=== PATIENT | female | born 1985 | race African-American/Black ===

== ENCOUNTER 2025-01-29 13:07 | Outpatient (AMB) | payer BC, SELFPAY ==
--- NOTE | 2025-01-29 13:16 | MHC.PC.OV ---
Vital Signs 01/29/25 13:24 Height 5 ft 3 in Weight 136 lb 2 oz BMI 24.1 BP 98/60 Blood Pressure Location Rt brachial Position Sitting Respiration 14 Pulse 88 Pulse Source Pulse Oximeter Temp 97.6 F Temp Source Temporal Artery Scan Pulse Oximetry (%) 98 Oxygen Delivery Method Room Air Intake Visit Reasons: EST CARE/REQUESTING A PE Intake Note: Heidi presents in the office today to establish care. Is last menstrual period known: Yes Last menstrual period: 01/19/25 Allergies Seasonal Allergies Allergy (Verified 01/29/25 13:39) Congestion Medication List - Last Reconciled 01/29/25 by Norah Thompson CNP No Known Home Meds Tobacco use date assessed: 01/29/25 Dental Screening Dental Screen Date: 01/29/25 Did you have a dental visit in the last 12 months?: Yes Did you have a dental problem in the last 6 months where you did not have access to dental care?: No Was dental information given to patient?: Patient has dentist HPI HPI Comments History of Present Illness Details 39-year-old female presents to establish care. Relocated to the [facility] from [place] in 2009. Prior PCP? - [place] Last office visit/CPE/labs - 02/2024 Acute issue(s) - Reports low home blood pressure readings with intermittent dizziness for the past 2 months. No acute symptoms at this time. - She reports h/o anxiety and depression. She saw a therapist until 3 years ago. She has never been on psychotropic medication. She notes that her anxiety and depressive symptoms are generally well controlled. Past Medical History - Myopia, anxiety and depression, uterine fibroids, menstrual blood clots Surgical History - Myomectomy 02/2024 Family History - Dad: Cardiovascular disease, diabetes, hyperlipidemia, hypertension, glaucoma - Mom: Asthma, diabetes, hypertension, glaucoma Social History - Former smoker, smoked occasionally between 2009 and 2014 and 3 cigarettes daily x 2 years, quit in 2017. Does not vape. Drinks 3-4 glasses of wine monthly. Denies recreational drug use - Has been making healthy dietary choices. Exercises routinely. Reports poor sleep due to racing thoughts and frequent dreams, sleeps and average of 5-6 hours nightly, denies snoring Health maintenance - Last eye exam was a year ago: Referred to Ophthalmology for routine eye exam - Last dental visit was a year ago. She has dental upcoming dental visit scheduled - Last Tdap was in 02/2024. Record not currently available - Has not been vaccinated for the flu this season; declines vaccination - Last pap smear test was with [facility] records tech in 2023: normal. Record not currently available Specialists [facility] records tech [facility] Medical History (Updated 01/29/25 @ 14:15 by Norah Thompson CNP) Fibroid, uterine Depression Fibroids Blood clotting disorder Family History (Updated 01/29/25 @ 13:23 by Arlin Ballesteros MA) Mother Asthma Hypertension Diabetes Brother Asthma Father Hypertension Hyperlipemia Diabetes Cardiovascular disease Social History (Updated 01/29/25 @ 13:23 by Arlin Ballesteros MA) Housing: House Alcohol intake: current Patient Tobacco Use Status: Former Tobacco user Cigarette Packs Per Day: 1 Cigarettes Per Day: 3 Years Smoked: 7 e-Cigarette/Vaping Use: Never Used Second Hand Smoke Exposure: No service: No Current occupational status: employed 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 1. Little interest or pleasure in doing things: several days 2. Feeling down, depressed, or hopeless: several days 3. Trouble falling or staying asleep, or sleeping too much: several days 4. Feeling tired or having little energy: several days 5. Poor appetite or overeating: several days 6. Feeling bad about yourself - or that you are a failure or have let yourself or your family down: several days 7. Trouble concentrating on things, such as reading the newspaper or watching television: several days 8. Moving or speaking so slowly that other people could have noticed. Or the opposite - being so fidgety or restless that you have been moving around a lot more than usual: not at all 9. Thoughts that you would be better off or of hurting yourself in some way: not at all Total score: 7 Depression Screening Interpretation: Positive Depression Screening Done: Yes 90207 - PHQ-9 Billing: Yes Source: Developed by Drs. Colby Licea, Fabio Stone and colleagues, with an educational laura from [employer]. Thrive Questionnaire Date Thrive assessed: 01/29/25 I am a: Patient What is your living situation today?: I have a steady place to live Within the past 12 months, did the food you bought not last and you didn't have the money to get more?: Never true Within the past 12 months, did you worry whether your food would run out before you got money to buy more?: Never true Do you have trouble paying for medicines?: No Do you have trouble getting transportation to medical appointments?: No Do you have trouble paying your heating and electricity bill?: No Do you have trouble taking care of your child, family member or friend?: No Do you have trouble with day-to-day activities such as bathing, preparing meals, shopping, managing finances, etc.?: No Are you currently unemployed and looking for a job?: No Are you interested in more education?: Yes Please select the resources that you would like help with: Education Currently or been in a relationship where the following occur: No concerns reported THRIVE Score: 0 AUDIT C Alcohol Use Questionnaire (AUDIT-C) 1. How often do you have a drink containing alcohol?: 2-4 times a month 2. How many drinks containing alcohol do you have on a typical day when you are drinking?: 1 or 2 3. How often do you have six or more drinks on one occasion?: Never Total Score: 2 Score Reviewed/Action Taken: Yes RICHARD-7 AMB Questionnaire RICHARD-7 Date RICHARD - 7 assessed: 01/29/25 Feeling nervous, anxious, or on edge: 1 = Several days Not being able to stop or control worryin = Several days Worrying too much about different things: 1 = Several days Trouble relaxin = Several days Being so restless that it is hard to sit still: 1 = Several days Becoming easily annoyed or irritable: 1 = Several days Feeling afraid as if something awful might happen: 1 = Several days Total RICHARD-7 score (0-4 normal; 5-9 mild; 10-14 moderate; 15-21 severe): 7 Source: Developed by Laura Lazcano Kurt Kroenke and colleagues, with an educational laura from [employer]. RICHARD-7 Assessment Billing RICHARD-7 Assessment Tool: RICHARD-7 Assessment 91031 Review of Systems Const Details: Denies chills, Denies fatigue, Denies fever(s), Denies headache(s) and Denies weakness HEENT Denies change in vision, Denies dizziness, Denies headache(s), Denies hearing loss, Denies nasal congestion, Denies sinus pain, Denies sinus pressure and Denies sore throat Card Denies chest pain, Denies lightheadedness, Denies dyspnea and Denies other (palpitations) Resp Denies cough, Denies dyspnea and Denies wheezing GI Denies abdominal pain, Denies melena, Denies hematochezia, Denies change in bowel habits, Denies dyspepsia and Denies nausea Denies hematuria and Denies dysuria Musc Denies abnormal gait, Denies myalgias, Denies arthralgias, Denies numbness and Denies tingling Skin/Breast Denies rash, Denies unusual bruising and Denies wounds Neuro Denies abnormal gait, Denies dizziness, Denies headache(s), Denies memory loss, Denies numbness, Denies Sensory deficit (Neuro), Denies tingling and Denies weakness Psych Denies anxiety, Denies depression and Denies memory loss Endo Denies cold intolerance, Denies fatigue, Denies heat intolerance, Denies polydipsia and Denies polyuria Yasir/Lymph Denies easy bleeding and Denies easy bruising Aller/Immun Denies wheezing Physical exam (Primary Care) Vital Signs: Last Vital Signs Temp 97.6 F 01/29/25 13:24 Pulse 88 01/29/25 13:24 Resp 14 01/29/25 13:24 BP 98/60 01/29/25 13:24 Pulse Ox 98 01/29/25 13:24 Oxygen Delivery Method Room Air 01/29/25 13:24 BMI result Body Mass Index 24.1 Tobacco/Smoking Status: Tobacco use Status Tobacco use date assessed 01/29/25 01/29/25 13:29 Patient Tobacco Use Status Former Tobacco user 01/29/25 13:29 e-Cigarette/Vaping Use Never Used 01/29/25 13:29 PHQ-9: PHQ-9 Score PHQ-9: Total score 7 01/29/25 13:18 Depression Screening Interpretation: Positive Thrive Assessment: Date of Thrive Assessment Date Thrive assessed 01/29/25 01/29/25 13:18 Currently or been in a relationship where the following occur: No concerns reported Const Other: General: no acute distress, well developed, alert and awake Nutritional Appearance: well nourished Orientation/consciousness: patient oriented x3 [facility] Head: Yes normocephalic and Yes atraumatic Ears: hearing grossly normal bilaterally and TM's normal bilaterally General nose exam: Normal external nose present and Normal nares present Mouth: Normal oral and palatal mucosa present and moist mucous membranes Teeth and gingiva: dentition normal Throat: Yes oropharynx normal Eyes Pupils: Equal, round and reactive pupils present and Pupil accommodation reflex normal EOM: EOMs intact bilaterally Neck Neck: Yes normal visual inspection, Yes no lymphadenopathy and Yes trachea midline Thyroid: Thyroid normal Carotids: no bruits Lymphatic: no lymphadenopathy noted Chest Chest palpation & inspection: normal inspection of the chest Resp Effort & Inspection: normal respiratory effort Auscultation: clear to auscultation bilaterally Cardio Rate: regular rate Rhythm: regular rhythm Heart sounds: S1 normal heart sound present, S2 normal heart sound present, no gallops, no murmurs and no rubs Bruits: no abdominal aortic bruits and no carotid bruits GI Palpation (GI): No Abdominal aortic bruit present, Soft to palpation, nontender, No hepatosplenomegaly present and No Rebound tenderness present Auscultation: normal bowel sounds General: Yes no CVA tenderness Back/Spine/Pelvis Back: no CVA tenderness Cervical Spine: cervical ROM normal and No Cervical spine tenderness Thoracic/Lumbar Spine: thoraco-lumbar ROM normal, No pain with thoraco-lumbar ROM, No thoracic spinal tenderness and No lumbar spinal tenderness Skin General: warm and dry. Normal skin color. Normal skin turgor Lesions: no lesions Rashes: no rashes Trauma: no lacerations or abrasions Wounds: no wounds Nails: normal Neuro General: patient oriented x3, gait normal and CN's II-XI intact bilaterally Cranial nerves: Yes Equal, round and reactive pupils present Cognition (Neuro): normal cognition Gait exam (Neuro): Normal gait present Motor exam (neuro): 5/5 motor strength present throughout Sensory Exam: No Sensory deficit (Neuro) Deep tendon reflexes (DTR's): Right patellar reflex intensity grade: 2+ and Left patellar reflex intensity grade: 2+ Extrem General: Yes normal to inspection, No edema and No calf tenderness Psych Appearance: grossly normal Affect: normal affect Attitude: cooperative Thought process: Normal thought process present Coding Level of Care Code New Pt Level 3 (85703) New Pt Prev Care 18-39yr(19412 Diagnoses Normal physical examination, routine Z00.00 Hypotension I95.9 Anxiety and depression F41.9; F32.A Myopia H52.10 Sleep disturbance G47.9 Laboratory tests ordered as part of a complete physical exam (CPE) Z00.00 Additional Codes RICHARD-7 Assessment Billing - RICHARD-7 Assessment Tool: RICHARD-7 Assessment 26519 ([id number]) PHQ-9 - 96888 - PHQ-9 Billing: Yes ([id number]) Assessment & Plan Assessment & Plan (1) Normal physical examination, routine: Code(s): Z00.00 - Encounter for general adult medical examination without abnormal findings Category: Medical Plan: No significant functional limitations noted. Healthy diet and routine exercise encouraged. Perform lab work and follow-up for telehealth visit in 2-3 weeks for labs review. Return sooner with symptoms or concerns. Verbalized understanding and agreed with the plan. (2) Hypotension: Code(s): I95.9 - Hypotension, unspecified Category: Medical Plan: Reports low home blood pressure readings with intermittent dizziness for the past 2 months. No acute symptoms at this time. Blood pressure is 98/60. Adequate hydration encouraged. Will review lab results once performed and make changes as needed. Follow-up with worsening or new symptoms. Verbalized understanding and agreed with the treatment plan. (3) Anxiety and depression: Code(s): F41.9 - Anxiety disorder, unspecified; F32.A - Depression, unspecified Category: Medical Plan: Reports h/o anxiety and depression. She saw a therapist until 3 years ago. She has never been on psychotropic medication. She notes that her anxiety and depressive symptoms are generally well controlled. PHQ-9 and RICHARD-7 scores revealed mild depression and anxiety. Routine exercise encouraged. Follow-up as needed. Verbalized understanding and agreed with the plan. (4) Myopia: Code(s): H52.10 - Myopia, unspecified eye Category: Medical Plan: Last eye exam was a year ago. Referred to Ophthalmology for routine eye exam. (5) Sleep disturbance: Code(s): G47.9 - Sleep disorder, unspecified Category: Medical Plan: Reports poor sleep due to racing thoughts and frequent dreams, sleeps and average of 5-6 hours nightly, denies snoring. Instructed on sleep hygiene. Routine exercise encouraged. Follow-up as needed. Verbalized understanding and agreed with the plan. (6) Laboratory tests ordered as part of a complete physical exam (CPE): Code(s): Z00.00 - Encounter for general adult medical examination without abnormal findings Category: Medical Plan: Fasting labs ordered as part of a complete physical exam. Advised to fast for at least 10 hours before getting labs drawn. May drink water Verbalized understanding and agreed with treatment plan. Orders: Orders Lipid Panel Today Z00.00 - Encounter for general adult medical examination without abnormal findings Microalbumin, Random (w Creat) Today Z00.00 - Encounter for general adult medical examination without abnormal findings TSH reflex Free T4 Today Z00.00 - Encounter for general adult medical examination without abnormal findings UA CC w/rflx Micro + Cult Today Z00.00 - Encounter for general adult medical examination without abnormal findings Complete Blood Count Auto Diff Today Z00.00 - Encounter for general adult medical examination without abnormal findings Comprehensive [place]. Panel Fast Today Z00.00 - Encounter for general adult medical examination without abnormal findings Vitamin D 25-OH Total Today Z00.00 - Encounter for general adult medical examination without abnormal findings Referrals Ophthalmology Referral H52.10 - Myopia, unspecified eye
[2025-01-29 13:24] VITALS: BP 98/60; PULSE 88; RESP 14; TEMP 36.4; O2SAT 98; BMI 24.1
== END 2025-01-29 14:10 | disposition home or self-care (01) ==
LOC: HO.HMCFM 13:08
PROVIDERS: PCP Nurse Practitioner Family; Visit Provider Nurse Practitioner Family
DX: Z00.00 Encounter for general adult medical examination without abnormal findings (principal); I95.9 Hypotension, unspecified; F41.9 Anxiety disorder, unspecified; F32.A Depression, unspecified; H52.10 Myopia, unspecified eye; G47.9 Sleep disorder, unspecified

== ENCOUNTER → 2025-01-29 13:07 | Outpatient (BNVA) | payer BC, SELFPAY | PROVIDERS: PCP Nurse Practitioner Family; Visit Provider Nurse Practitioner Family | DX: Z00.00 Encounter for general adult medical examination without abnormal findings (principal); I95.9 Hypotension, unspecified; F41.9 Anxiety disorder, unspecified; F32.A Depression, unspecified; H52.10 Myopia, unspecified eye; G47.9 Sleep disorder, unspecified | CPT/HCPCS: 96127 ==

== ENCOUNTER 2025-02-13 07:36 | Outpatient (REF) | payer BC, SELFPAY ==
[2025-02-13 11:05] LABS: MANUAL DIFF FLAG NO
[2025-02-13 11:09] LABS: Hematocrit 34.9 % (37.0-47.0); Hemoglobin 10.4 g/dl (12.0-16.0); Imm Gran Abs Auto 0.02 X10*3/uL (0.00-0.03); Imm Gran Pct Auto 0.3 % (0.0-0.4); Lymphocytes Absolute Auto 2.3 X10*3/uL (1.2-4.9); Mean Corpuscular HGB Conc 29.8 g/dl (31.0-35.0); Mean Corpuscular Hemoglobin 23.6 pg (27.0-33.0); Mean Corpuscular Volume 79.1 fL (80.0-98.0); NRBC Abs Auto 0.000 X10*3/uL (0.0-0.012); NRBC Pct Auto 0.0 /100WBC (0.0-0.2); Platelet Count 306 X10*3/uL (160-400); Red Blood Count 4.41 X10*6/uL (4.20-5.50); White Blood Count 6.2 X10*3/uL (4.8-10.8)
[2025-02-13 11:12] LABS: Appearance Urine Clear; Glucose Urine UA Negative (Negative); PH 6.0 (5.0-9.0); Specific Gravity - Urine 1.025 (1.005-1.025)
[2025-02-13 11:42] LABS: Alanine Aminotransferase 7 U/L (0-31); Albumin Level 4.2 g/dL (3.5-5.0); Alkaline Phosphatase 71 U/L (39-117); Anion Gap 9 (12-20); Aspartate Amino Transferase 19 U/L (5-31); Blood Urea Nitrogen 8 mg/dL (9-16); Calcium 8.9 mg/dL (8.4-10.2); Carbon Dioxide 27 mmol/L (22-29); Chloride 106 mmol/L (96-108); Cholesterol 161 mg/dL (<200); Estimated Glomerular Filt Rate > 60; HDL Cholesterol 47 mg/dL (>40); Potassium 3.8 mmol/L (3.3-5.1); Sodium 138 mmol/L (135-145); Total Protein 7.5 g/dL (6.5-8.0); Triglycerides 65 mg/dL (<150)
[2025-02-13 12:03] LABS: Microalbum/Creatinine Ratio Ur 3.8 ug/mg cr (<30)
== END 2025-02-13 07:37 | disposition home or self-care (01) ==
LOC: HO.WFDLDS 07:36
PROVIDERS: Visit Provider Nurse Practitioner Family
DX: Z00.00 Encounter for general adult medical examination without abnormal findings (principal); Z13.6 Encounter for screening for cardiovascular disorders; Z13.29 Encounter for screening for other suspected endocrine disorder; Z13.0 Encounter for screening for diseases of the blood and blood-forming organs and certain disorders involving the immune mechanism
CPT/HCPCS: 36415; 80053; 80061; 81003; 82043; 82306; 82570; 84443; 85025

== ENCOUNTER 2025-02-19 12:21 | Outpatient (AMB) | payer BC, SELFPAY ==
--- NOTE | 2025-02-19 12:17 | MHC.PC.OV ---
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 No acute symptoms. [facility] Medical History (Updated 02/19/25 @ 13:12 by Norah Thompson CNP) Fibroid, uterine Depression Fibroids Blood clotting disorder Family History (Updated 01/29/25 @ 13:23 by Arlin Ballesteros MA) Mother Asthma Hypertension Diabetes Brother Asthma Father Hypertension Hyperlipemia Diabetes Cardiovascular disease Social History (Updated 01/29/25 @ 13:23 by Arlin Ballesteros MA) Housing: House Alcohol intake: current Patient Tobacco Use Status: Former Tobacco user Cigarette Packs Per Day: 1 Cigarettes Per Day: 3 Years Smoked: 7 e-Cigarette/Vaping Use: Never Used Second Hand Smoke Exposure: No service: No Current occupational status: employed 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 Current occupational exposures/hazards: Yes Cognitive needs: No Hearing needs: No Vision needs: No Female Reproductive History Menstrual Date of last menstrual period: 02/13/25 Questionnaire Thrive Questionnaire Date Thrive assessed: 01/24/25 I am a: Patient What is your living situation today?: I have a steady place to live Within the past 12 months, did the food you bought not last and you didn't have the money to get more?: Never true Within the past 12 months, did you worry whether your food would run out before you got money to buy more?: Never true Do you have trouble paying for medicines?: No Do you have trouble getting transportation to medical appointments?: No Do you have trouble paying your heating and electricity bill?: No Do you have trouble taking care of your child, family member or friend?: No Do you have trouble with day-to-day activities such as bathing, preparing meals, shopping, managing finances, etc.?: No Are you currently unemployed and looking for a job?: No Are you interested in more education?: Yes Please select the resources that you would like help with: Education Currently or been in a relationship where the following occur: No concerns reported THRIVE Score: 0 RICHARD-7 AMB Questionnaire RICHARD-7 Date RICHARD - 7 assessed: 01/29/25 Source: Developed by Drs. Colby Licea, Laura Moses, Fabio Novak and colleagues, with an educational laura from [employer]. Review of Systems Const Details: Denies chills, Denies fatigue, Denies fever(s), Denies headache(s) and Denies weakness Cardiac Denies chest pain, Denies claudication, Denies leg edema, Denies lightheadedness, Denies palpitations, Denies dyspnea, Denies dyspnea on exertion, Denies orthopnea and Denies other (Loss of consciousness) Resp Denies cough, Denies excessive phlegm production, Denies dyspnea, Denies dyspnea on exertion, Denies snoring and Denies wheezing Physical exam (Primary Care) Tobacco/Smoking Status: Tobacco use Status Tobacco use date assessed 02/19/25 02/19/25 12:19 Patient Tobacco Use Status Former Tobacco user 02/19/25 12:19 e-Cigarette/Vaping Use Never Used 02/19/25 12:19 Thrive Assessment: Date of Thrive Assessment Date Thrive assessed 01/24/25 02/19/25 12:19 Currently or been in a relationship where the following occur: No concerns reported Const Other: Patient is alert oriented x3 Telehealth Telehealth Telehealth Platform: Telephone Location of provider rendering services: practice address Location of patient: address on file Patient Identification confirmed using: Name, : Yes Telehealth method: voice only Patient verbally consented to treatment: Yes Patient verbally consented to billing insurance company: Yes Patient informed of any privacy concerns related to visit: Yes Coding Level of Care Code Tele Est Pt Level 3 (41015) Diagnoses Microcytic anemia D50.9 Vitamin D deficiency E55.9 Elevated LDL cholesterol level E78.00 Time Spent (min) 15 Assessment & Plan Assessment & Plan (1) Microcytic anemia: Code(s): D50.9 - Iron deficiency anemia, unspecified Category: Medical Plan: Recent H&H is low, 10.4/34.9 respectively, MCV is slightly low 79.1. Reports history of iron-deficiency anemia. She was on ferrous sulfate until over a year ago. She felt sleepy on the medication and did not like that feeling. She requests iron infusion for iron replacement instead of ferrous sulfate. Will check iron profile and ferritin levels. Will also check vitamin B12 and folate levels. Will review results and make changes as needed. May referred to [facility] hematology/oncology. Follow-up for telehealth visit in 2 months. Return sooner with symptoms or concerns. Verbalized understanding and agreed with the plan. (2) Vitamin D deficiency: Code(s): E55.9 - Vitamin D deficiency, unspecified Category: Medical Plan: Recent vitamin-D level is low, 24.8. Vitamin D3 1000 units daily ordered; advised to take as prescribed. Perform vitamin-D blood work 2-3 days before next visit. Follow-up for a telehealth visit in 2 months. Verbalized understanding and agreed with the plan. (3) Elevated LDL cholesterol level: Code(s): E78.00 - Pure hypercholesterolemia, unspecified Category: Medical Plan: Recent LDL level is slightly elevated, 101. Triglycerides, total cholesterol, HDL levels are normal. Advised to limit foods high in saturated fat and avoid foods high in trans fat. Routine exercise encouraged. Will monitor to lipid panel annually or as needed. Verbalized understanding and agreed with the plan. Orders: Orders Ferritin Today D50.9 - Iron deficiency anemia, unspecified Vitamin D 25-OH Total 2 Months E55.9 - Vitamin D deficiency, unspecified Vitamin B12 and Folate Today D50.9 - Iron deficiency anemia, unspecified IRON PROFILE Today D50.9 - Iron deficiency anemia, unspecified Medications: New cholecalciferol (vitamin D3) 25 mcg PO DAILY 90 tabs 3RF 90 days
== END 2025-02-19 13:27 | disposition home or self-care (01) ==
LOC: HO.HMCFM 12:21
PROVIDERS: PCP Nurse Practitioner Family; Visit Provider Nurse Practitioner Family
DX: D50.9 Iron deficiency anemia, unspecified (principal); E55.9 Vitamin D deficiency, unspecified; E78.00 Pure hypercholesterolemia, unspecified

== ENCOUNTER 2025-04-25 09:15 | Outpatient (REF) | payer BC, SELFPAY ==
[2025-04-25 12:05] LABS: Iron 38 mcg/dL (30-160); Percent Iron Saturation 9 % (15-50); Total Iron Binding Capacity 416 mcg/dL (228-428); Unsaturated Iron Binding 378 ug/dL
[2025-04-25 12:08] LABS: Ferritin 11 ng/mL (10-122)
[2025-04-25 12:25] LABS: Folate 11.8 ng/mL (> or = 4.0); Vitamin B12 345 pg/mL (200-900)
== END 2025-04-25 09:16 | disposition home or self-care (01) ==
LOC: HO.WFDLDS 09:15
PROVIDERS: Visit Provider Nurse Practitioner Family
DX: D50.9 Iron deficiency anemia, unspecified (principal); E55.9 Vitamin D deficiency, unspecified
CPT/HCPCS: 36415; 82306; 82607; 82728; 82746; 83540

== ENCOUNTER 2025-04-29 15:16 | Outpatient (AMB) | payer BC, SELFPAY ==
--- NOTE | 2025-04-29 15:03 | A.OFFPC_ITS ---
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: No Is last menstrual period known: Yes Last menstrual period: 04/06/25 Post menopausal: No Patient : No Allergies Seasonal Allergies Allergy (Verified 04/29/25 15:04) Congestion Tobacco use date assessed: 04/29/25 Dental Screening Dental Screen Date: 04/29/25 Did you have a dental visit in the last 12 months?: No Did you have a dental problem in the last 6 months where you did not have access to dental care?: No Was dental information given to patient?: Patient has dentist HPI HPI Comments History of Present Illness Details 39-[facility] lab results. She notes that she inconsistently taking vitamin-D3. She developed body aches, tiredness, trouble sleeping, and muscle aches which she thinks are side effects of the the medication; therefore, she stopped taking the medication. She offers no complaints and denies acute symptoms at this time. [facility] Medical History (Updated 02/19/25 @ 13:12 by Norah Thompson CNP) Fibroid, uterine Depression Fibroids Blood clotting disorder Family History (Updated 01/29/25 @ 13:23 by Arlin Ballesteros MA) Mother Asthma Hypertension Diabetes Brother Asthma Father Hypertension Hyperlipemia Diabetes Cardiovascular disease Social History (Updated 01/29/25 @ 13:23 by Arlin Ballesteros MA) Housing: House Alcohol intake: current Patient Tobacco Use Status: Former Tobacco user Cigarette Packs Per Day: 1 Cigarettes Per Day: 3 Years Smoked: 7 Packs Per Year: 7 Packs per year/per ci.05 e-Cigarette/Vaping Use: Never Used Second Hand Smoke Exposure: No Patient : No service: No Current occupational status: employed 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 Current occupational exposures/hazards: Yes Cognitive needs: No Hearing needs: No Vision needs: No Female Reproductive History Menstrual Date of last menstrual period: 04/06/25 Questionnaire Thrive Questionnaire Date Thrive assessed: 01/29/25 I am a: Patient What is your living situation today?: I have a steady place to live Within the past 12 months, did the food you bought not last and you didn't have the money to get more?: Never true Within the past 12 months, did you worry whether your food would run out before you got money to buy more?: Never true Do you have trouble paying for medicines?: No Do you have trouble getting transportation to medical appointments?: No Do you have trouble paying your heating and electricity bill?: No Do you have trouble taking care of your child, family member or friend?: No Do you have trouble with day-to-day activities such as bathing, preparing meals, shopping, managing finances, etc.?: No Are you currently unemployed and looking for a job?: No Are you interested in more education?: Yes Please select the resources that you would like help with: Education Currently or been in a relationship where the following occur: No concerns reported THRIVE Score: 0 RICHARD-7 AMB Questionnaire RICHARD-7 Date RICHARD - 7 assessed: 01/29/25 Source: Developed by Drs. Colby Licea, Laura Moses, Fabio Novak and colleagues, with an educational laura from [employer]. Review of Systems Const Details: Denies chills, Denies fatigue, Denies fever(s), Denies headache(s) and Denies weakness Cardiac Denies chest pain, Denies claudication, Denies leg edema, Denies lightheadedness, Denies palpitations, Denies dyspnea, Denies dyspnea on exertion, Denies orthopnea and Denies other (Loss of consciousness) Resp Denies cough, Denies excessive phlegm production, Denies dyspnea, Denies dyspnea on exertion, Denies snoring and Denies wheezing Physical exam (Primary Care) Tobacco/Smoking Status: Tobacco use Status Tobacco use date assessed 04/29/25 04/29/25 15:05 Patient Tobacco Use Status Former Tobacco user 04/29/25 15:05 e-Cigarette/Vaping Use Never Used 04/29/25 15:05 Thrive Assessment: Date of Thrive Assessment Date Thrive assessed 01/24/25 04/29/25 15:17 Currently or been in a relationship where the following occur: No concerns reported Const Other: Patient is alert and oriented x4 Telehealth Telehealth Telehealth Platform: Telephone Location of provider rendering services: practice address Location of patient: address on file Patient Identification confirmed using: Name, : Yes Telehealth method: voice only Patient verbally consented to treatment: Yes Patient verbally consented to billing insurance company: Yes Patient informed of any privacy concerns related to visit: Yes Coding Level of Care Code Tele Est Pt Level 3 (87365) Diagnoses Vitamin D deficiency E55.9 Microcytic anemia D50.9 Time Spent (min) 15 Assessment & Plan Assessment & Plan (1) Vitamin D deficiency: Code(s): E55.9 - Vitamin D deficiency, unspecified Category: Medical Plan: Recent vitamin-D level is low, 14.2, previous level was 24.8. She inconsistently took vitamin-D3. She developed body aches, tiredness, trouble sleeping, and muscle aches which she thinks are side effects of the the medication; therefore, she stopped taking the medication. Informed that those symptoms and the common adverse reactions of the medication but rather vitamin-D deficiency. Adverse reactions of the medication also, with toxicity. She notes that she will consider restarting the medication. Encouraged to take the medication as prescribed. Repeat vitamin-D level a few days before next visit. Follow-up for transfer of care and vitamin-D deficiency with a new PCP in 2 months. Follow-up with worsening or new symptoms. Verbalized understanding and agreed with the plan. (2) Microcytic anemia: Code(s): D50.9 - Iron deficiency anemia, unspecified Category: Medical Plan: Recent iron profile, ferritin, vitamin B12 and folate levels are normal. Follow-up as planned. Verbalized understanding and agreed with the plan. Orders: Orders Vitamin D 25-OH Total 2 Months E55.9 - Vitamin D deficiency, unspecified
--- OUTSIDE RECORDS SUMMARY | 2025-04-29 17:23 | XMS_ITS | Data Portability ---
Author Organization [facility] [address] Address [address] [place] [address] Assessment No assessment recorded. Plan of Treatment Reminders Order Date Submit Date Provider Last Modified By Organization Details Last Modified Time Details Appointments None record ed. Lab None record ed. Referral None record ed. Procedures None record ed. Surgeries None record ed. Imaging None record ed. Medication Orders None record ed. Patient TargetsNo targets recorded. Patient Instructions Encounter Date Encounter Id Patient Instructions Last Modified By Organization Details Last Modified Time 10/29/2022 [id number] This physical does not replace the annual physical to be performed by your PCP. There may be additional screening tests that they will perform that we do not in the urgent care setting. Failure to follow up as recommended may result in significant adverse health consequences. If your symptoms worsen or you develop new symptoms that concern you, go to the emergency department for further evaluation. [email or web address] Not available 10/29/2022 11:18:41 Reason for Referral None Reported. Procedures Surgical History Date Name Laterality Status Provider Name and Address Organization Details Recorded Time 3 [facility]- Physical completed Arleen Lopez [facility] 10/29/2022 11:11:16 Imaging Results None recorded. Procedure Notes None recorded. Medical Equipment None Reported. Vitals None Recorded Social History None recorded. Functional Status None recorded. Mental Status None recorded. Family History Nothing Reported. Medical History No medical history recorded. Gynecological HistoryNo gynecological history recorded. Obstetrics History GPAL:G 0 P 0 0 0 0 Past Encounters Encounter ID Performer Location Encounter Start Date Encounter Closed Date Diagnosis/Indication Diagnosis SNOMED-CT Code Diagnosis ICD10 Code Diagnosis IMO Codes Diagnosis Note [id number] [facility] [address] [address] [address] 09/04/2019 13:29:26 09/04/2019 14:03:43 [id number] [address] [address] 08/15/2018 16:33:12 08/15/2018 17:10:09 [id number] Isael Alex NP [address] [address] [place] [address] 10/29/2022 08:41:19 10/29/2022 11:25:28 History and physical examination, pre-employment [id number] Z02.1 Health Concerns Section Related Observation LastModified by Organization Detai ls LastModified Time None Recorded Concern Status LastModified by Organization Details LastModified Time None Recorded Advance Directives Directive None Recorded Payers Insurance Date Sequence Insurance Name Policy Number Policy Bardales Covered Member ID Bardales Member ID Guarantor Name 10/29/[address] [place] [address] [id number] 01 [facility] [id number] [facility] 10/29/2022 [facility] Notes Date Note Type Note Provider Name a nd Address Organization Details Recorded Time 10/29/2022 text/html physical Isael Alex NP [address] [place], [address], [place] [facility] 10/29/2022 11:19:00 OBGyn Episode No OBEpisode recorded.
== END 2025-04-29 16:12 | disposition home or self-care (01) ==
LOC: HO.HMCFM 15:17
PROVIDERS: PCP Nurse Practitioner Family; Visit Provider Nurse Practitioner Family
DX: D50.9 Iron deficiency anemia, unspecified (principal); E55.9 Vitamin D deficiency, unspecified